=== PATIENT | female | born 1965 | race Caucasian/White ===

== ENCOUNTER 2017-03-28 09:16 | Emergency (ER) | payer MEDICAID ==
[~2017-03-28] VITALS: Ht 152.4 cm; Wt 59.0 kg
[2017-03-28] MEDS ORDERED: IBUPROFEN 600MG TABLET PO ONE (10:45)
[2017-03-28 12:08] VITALS: BP 118/70
== END 2017-03-28 12:09 | disposition home or self-care (01) ==
LOC: ER 09:16
DX: M25.512 Pain in left shoulder (principal); W01.0XXA Fall on same level from slipping, tripping and stumbling without subsequent striking against object, initial encounter; Y93.9 Activity, unspecified; Y92.9 Unspecified place or not applicable; Y99.9 Unspecified external cause status; E11.9 Type 2 diabetes mellitus without complications; Z98.890 Other specified postprocedural states
CPT/HCPCS: 73030; 81025; 99284

== ENCOUNTER 2019-02-07 08:12 | Emergency (ER) | payer MEDICAID ==
[~2019-02-07] VITALS: Ht 157.5 cm; Wt 54.0 kg
[2019-02-07] MEDS ORDERED: KETOROLAC 30MG/ML VIAL IM ONE (09:15)
[2019-02-07 10:38] VITALS: BP 138/78
== END 2019-02-07 10:10 | disposition home or self-care (01) ==
LOC: ER 08:12
DX: S82.492A Other fracture of shaft of left fibula, initial encounter for closed fracture (principal); E11.9 Type 2 diabetes mellitus without complications; W18.39XA Other fall on same level, initial encounter; Y93.89 Activity, other specified; Y92.89 Other specified places as the place of occurrence of the external cause; Y99.8 Other external cause status
CPT/HCPCS: 29505; 73562; 96372; 99283; J1885

== ENCOUNTER 2021-03-17 11:07 | Emergency (ER) | payer MEDICAID ==
[~2021-03-17] VITALS: Ht 152.4 cm; Wt 54.0 kg
[2021-03-17] MEDS ORDERED: SODIUM CHLORIDE 0.9% 1,000 ML IV ONE (12:30)
[2021-03-17] MEDS ORDERED: ONDANSETRON HCL 4MG/2ML INJ IV ONE (12:30)
[2021-03-17] MEDS ORDERED: FAMOTIDINE 20MG/2ML VIAL IV ONE (12:30)
[2021-03-17 12:57] LABS: BASOPHILS % 0.3 % (0.0-2.0); EOSINOPHILS % 0.2 % (0.0-5.0); HEMATOCRIT. 43.7 % (36.0-48.0); HEMOGLOBIN. 14.7 g/dL (12.0-16.0); LYMPHOCYTES % 7.6 % (20.0-50.0); MEAN CORPUSCULAR HEMOGLOBIN 31.8 pg (28.0-32.0); MEAN CORPUSCULAR VOLUME 94.4 fL (81.0-99.0); MEAN PLATELET VOLUME 10.4 fl (7.4-10.4); MONOCYTES % 11.9 % (2.0-8.0); PLATELET 148 x1000/uL (130-400); RED BLOOD CELL COUNT 4.63 mill/uL (4.2-5.4)
[2021-03-17 12:58] LABS: CHLORIDE 102 mEq/L (98-107)
[2021-03-17 15:58] LABS: CLARITY URINE CLOUDY (CLEAR); COLOR URINE YELLOW (YELLOW); KETONES URINE 4+ (NEGATIVE); LEUKOCYTE ESTERASE URINE 1+ (NEGATIVE); NITRITE URINE NEGATIVE (NEGATIVE); OCCULT BLOOD URINE 1+ (NEGATIVE); PROTEIN URINE TRACE (NEGATIVE); UROBILINOGEN URINE 0.2 E.U./dL (0.2-1.0)
[2021-03-17] MEDS ORDERED: IBUP-2029 MT (17:28)
[2021-03-17] MEDS ORDERED: ONDA4TAB11 PO (17:28)
[2021-03-17] MEDS ORDERED: LEVO500T89 MT (17:28)
[2021-03-17 17:33] VITALS: BP 121/68
== END 2021-03-17 18:09 | disposition home or self-care (01) ==
LOC: ER 11:07
DX: K52.9 Noninfective gastroenteritis and colitis, unspecified (principal); E11.65 Type 2 diabetes mellitus with hyperglycemia; E86.0 Dehydration; N39.0 Urinary tract infection, site not specified; R00.0 Tachycardia, unspecified; Z98.51 Tubal ligation status; Z98.890 Other specified postprocedural states
CPT/HCPCS: 36415; 80048; 81003; 85025; 87086; 93005; 96361; 96374; 96375; 99285; J2405; J3490; J7030; 99284

== ENCOUNTER 2021-03-18 23:12 | Inpatient (IN) | payer MEDICAID ==
[~2021-03-18] VITALS: Ht 149.9 cm; Wt 54.0 kg
[~2021-03-18 23:12] MED LIST: IBUP-2029 MT; LEVO500T89 MT; ONDA4TAB11 PO
[2021-03-18] MEDS ORDERED: ONDANSETRON HCL 4MG/2ML INJ IV STA (23:31)
[2021-03-18] MEDS ORDERED: FAMOTIDINE 20MG/2ML VIAL IV STA (23:31)
[2021-03-18] MEDS ORDERED: SODIUM CHLORIDE 0.9% 1,000 ML IV ONE (23:45)
[2021-03-19] VITALS (46 sets, daily range): BP systolic 108–139; BP diastolic 59–84
[2021-03-19 00:43] LABS: BASOPHILS % 0.2 % (0.0-2.0); EOSINOPHILS % 0.6 % (0.0-5.0); HEMATOCRIT. 43.8 % (36.0-48.0); HEMOGLOBIN. 14.6 g/dL (12.0-16.0); LYMPHOCYTES % 7.3 % (20.0-50.0); MEAN CORPUSCULAR HEMOGLOBIN 31.7 pg (28.0-32.0); MEAN CORPUSCULAR VOLUME 94.9 fL (81.0-99.0); MEAN PLATELET VOLUME 9.9 fl (7.4-10.4); MONOCYTES % 9.3 % (2.0-8.0); NEUTROPHILS % 82.6 % (40.0-76.0); PLATELET 174 x1000/uL (130-400); RED BLOOD CELL COUNT 4.62 mill/uL (4.2-5.4); RED CELL DISTRIBUTION WIDTH 12.8 % (11.6-14.6)
[2021-03-19 00:47] LABS: CLARITY URINE CLEAR (CLEAR); COLOR URINE YELLOW (YELLOW); KETONES URINE 4+ (NEGATIVE); LEUKOCYTE ESTERASE URINE NEGATIVE (NEGATIVE); NITRITE URINE NEGATIVE (NEGATIVE); OCCULT BLOOD URINE 2+ (NEGATIVE); PROTEIN URINE 1+ (NEGATIVE); SPECIFIC GRAVITY URINE 1.021 (1.005-1.030); UROBILINOGEN URINE 0.2 E.U./dL (0.2-1.0)
[2021-03-19 00:51] LABS: CHLORIDE 105 mEq/L (98-107)
[2021-03-19] MEDS ORDERED: SODIUM CHLORIDE 0.9% 1,000 ML IV ONE (01:30)
[2021-03-19 02:03] LABS: BG BASE EXCESS -23.8 mmol/L (-2.0-2.0); BG CARBOXYHEMOGLOBIN 0.3 % (0.5-1.5); BG DEOXYHEMOGLOBIN 1.6 % (0.0-5.0); BG HCO3 ACT 3.3 mmol/L (22.0-26.0); BG METHEMOGLOBIN 0.3 % (0.0-1.5); BG OXYGEN SATURATION 98.4 % (92.0-98.5); BG OXYHEMOGLOBIN 97.8 % (94.0-97.0); BG PCO2 10.8 mmHg (35.0-45.0); BG PH 7.107 (7.350-7.450); BG PO2 144.2 mmHg (75.0-100.0); BG TOTAL HEMOGLOBIN 14.4 g/dL (12.0-18.0)
[2021-03-19 03:58] LABS: PHOSPHORUS 4.8 mg/dL (2.5-4.9)
[2021-03-19 04:37] LABS: BETA HYDROXYBUTYRATE 11.3 mMol/L (0.0-0.3)
[2021-03-19] MEDS ORDERED: ACETAMINOPHEN 325MG TABLET PO PRN (05:15)
[2021-03-19] MEDS ORDERED: ONDANSETRON HCL 4MG/2ML INJ IV PRN (05:15)
[2021-03-19] MEDS ORDERED: MAGNESIUM/ALUMINUM HYDROXIDE/SIMETHICONE 30ML UDC PO PRN (05:15)
[2021-03-19] MEDS ORDERED: CLONIDINE 0.1MG TABLET PO PRN (05:15)
[2021-03-19] MEDS ORDERED: DEXT 5%/0.45% NACL 1000ML 1,000 ML IV SCH ×2 (05:15→11:15)
[2021-03-19] MEDS ORDERED: INSULIN REGULAR (DRIP) 100 UNITS in SODIUM CHLORIDE 0.9% 100 ML IV ONE (05:45)
[2021-03-19 06:34] LABS: CHLORIDE 113 mEq/L (98-107)
[2021-03-19] MEDS: SODIUM BICARBONATE 50 MEQ in SODIUM CHLORIDE 0.45% 1,000 ML IV SCH ×2 (06:49→19:32)
[2021-03-19] MEDS ORDERED: IOHEXOL-300 100 ML BOTTLE ONE (07:22)
[2021-03-19] MEDS ORDERED: DEXTROSE 50% WATER 50ML SYRINGE IV PRN ×3 (09:30→11:00)
[2021-03-19] MEDS: BLOOD SUGAR DIAGNOSTIC STRIP TEST SCH ×13 (09:43→23:00)
[2021-03-19] MEDS ORDERED: SIMV-46 PO (09:58)
[2021-03-19] MEDS ORDERED: ERTU15TA PO (09:58)
[2021-03-19] MEDS ORDERED: CHOL25CR2 MC (09:58)
[2021-03-19] MEDS ORDERED: METF-415 MT (09:58)
[2021-03-19] MEDS ORDERED: POLY17PO28 MT (09:58)
[2021-03-19] MEDS: METOCLOPRAMIDE HCL 10MG/2ML VIAL IV SCH ×3 (10:23→23:37)
[2021-03-19 11:00] LABS: CHLORIDE 114 mEq/L (98-107)
[2021-03-19] MEDS ORDERED: BLOOD SUGAR DIAGNOSTIC STRIP TEST SCH (11:00)
[2021-03-19] MEDS ORDERED: INSULIN REGULAR (DRIP) 100 UNITS in SODIUM CHLORIDE 0.9% 99 ML IV SCH (11:00)
[2021-03-19] MEDS ORDERED: INSULIN REGULAR (DRIP) 100 UNITS in SODIUM CHLORIDE 0.9% 100 ML IV SCH (11:00)
[2021-03-19 13:08] LABS: CHLORIDE 116 mEq/L (98-107)
[2021-03-19] MEDS: PANTOPRAZOLE SODIUM 40 MG/VIAL IV SCH (14:08)
[2021-03-19] MEDS ORDERED: *PATIENT'S OWN MEDICATION STORAGE XX SCH (17:00)
[2021-03-19 20:05] LABS: CHLORIDE 120 mEq/L (98-107)
[2021-03-19] MEDS ORDERED: DEXT 5%/0.45% NACL KCL 20MEQ/L 1,000 ML IV SCH (22:00)
[2021-03-19] MEDS ORDERED: KCL 20MEQ/100ML PREMIX 100 ML IV ONE (22:00)
[2021-03-20] VITALS (63 sets, daily range): BP systolic 103–154; BP diastolic 24–96
[2021-03-20 00:46] LABS: CHLORIDE 120 mEq/L (98-107)
[2021-03-20] MEDS: BLOOD SUGAR DIAGNOSTIC STRIP TEST SCH ×12 (01:00→20:49)
[2021-03-20] MEDS ORDERED: KCL 20MEQ/100ML PREMIX 100 ML IV NR ×3 (06:00→08:00)
[2021-03-20 07:04] LABS: CHLORIDE 121 mEq/L (98-107)
[2021-03-20] MEDS: METOCLOPRAMIDE HCL 10MG/2ML VIAL IV SCH ×3 (07:16→17:27)
[2021-03-20] MEDS ORDERED: DEXTROSE 50% WATER 50ML SYRINGE IV PRN (07:45)
[2021-03-20] MEDS: INSULIN LISPRO 100 UNITS/ML SUBCUT SCH ×4 (08:06→20:56)
[2021-03-20] MEDS: PANTOPRAZOLE SODIUM 40 MG/VIAL IV SCH (09:55)
[2021-03-20] MEDS: INSULIN GLARGINE UD 100 UNITS/ML SYR SUBCUT SCH (09:56)
[2021-03-20] MEDS: SODIUM CHLORIDE 0.45% 1,000 ML IV SCH (09:57)
[2021-03-20 12:45] LABS: CHLORIDE 114 mEq/L (98-107)
[2021-03-20 18:50] LABS: CHLORIDE 111 mEq/L (98-107)
[2021-03-20] MEDS ORDERED: POTASSIUM CHLORIDE 20MEQ/PACKET PO NR (20:00)
[2021-03-21] VITALS (18 sets, daily range): BP systolic 103–136; BP diastolic 55–86
[2021-03-21] MEDS: METOCLOPRAMIDE HCL 10MG/2ML VIAL IV SCH ×4 (00:02→17:30)
[2021-03-21] MEDS: SODIUM CHLORIDE 0.45% 1,000 ML IV SCH ×2 (00:02→12:33)
[2021-03-21 06:57] LABS: BASOPHILS % 0.3 % (0.0-2.0); CHLORIDE 111 mEq/L (98-107); EOSINOPHILS % 1.6 % (0.0-5.0); HEMATOCRIT. 37.3 % (36.0-48.0); HEMOGLOBIN. 12.9 g/dL (12.0-16.0); MEAN CORPUSCULAR HEMOGLOBIN 31.2 pg (28.0-32.0); MEAN CORPUSCULAR VOLUME 90.1 fL (81.0-99.0); MEAN PLATELET VOLUME 9.1 fl (7.4-10.4); MONOCYTES % 12.6 % (2.0-8.0); NEUTROPHILS % 72.5 % (40.0-76.0); PLATELET 191 x1000/uL (130-400); RED BLOOD CELL COUNT 4.15 mill/uL (4.2-5.4); RED CELL DISTRIBUTION WIDTH 12.9 % (11.6-14.6)
[2021-03-21] MEDS ORDERED: POTASSIUM CHLORIDE 20MEQ/PACKET PO NR (08:00)
[2021-03-21] MEDS: PANTOPRAZOLE SODIUM 40 MG/VIAL IV SCH (08:03)
[2021-03-21] MEDS: BLOOD SUGAR DIAGNOSTIC STRIP TEST SCH ×4 (08:04→19:33)
[2021-03-21] MEDS: INSULIN LISPRO 100 UNITS/ML SUBCUT SCH ×4 (08:05→21:14)
[2021-03-21] MEDS: INSULIN GLARGINE UD 100 UNITS/ML SYR SUBCUT SCH (09:55)
[2021-03-21] MEDS ORDERED: ONDANSETRON HCL 4MG/2ML INJ IV PRN (10:30)
[2021-03-21] MEDS ORDERED: SODIUM CHLORIDE 0.45% 1,000 ML IV ONE (12:30)
[2021-03-22] VITALS: BP 105/62
[2021-03-22] MEDS: METOCLOPRAMIDE HCL 10MG/2ML VIAL IV SCH ×3 (01:06→12:28)
[2021-03-22 04:00] VITALS: BP 113/66
[2021-03-22] MEDS: SODIUM CHLORIDE 0.45% 1,000 ML IV SCH (04:02)
[2021-03-22] MEDS: BLOOD SUGAR DIAGNOSTIC STRIP TEST SCH ×2 (05:16→12:29)
[2021-03-22] MEDS: INSULIN LISPRO 100 UNITS/ML SUBCUT SCH ×2 (05:50→12:42)
[2021-03-22 08:00] VITALS: BP 117/63
[2021-03-22] MEDS ORDERED: LACTULOSE 20G/30ML UDC PO NR (10:00)
[2021-03-22] MEDS ORDERED: DOCUSATE SODIUM 100MG CAPSULE PO SCH (10:00)
[2021-03-22 12:00] VITALS: BP 120/74
[2021-03-22] MEDS: INSULIN GLARGINE UD 100 UNITS/ML SYR SUBCUT SCH (12:24)
[2021-03-22] MEDS: PANTOPRAZOLE SODIUM 40 MG/VIAL IV SCH (12:28)
[2021-03-22 14:40] VITALS: BP 120/74
== END 2021-03-22 15:30 | disposition home or self-care (01) | DRG 420 ==
LOC: ER 23:46 → CVICU 03-19 02:21 → EDBEDREQ 03-19 05:47 → EDBEDREQSVC 03-19 05:47 → ENRESERV 03-19 07:49 → ER 03-19 08:38 → 8WST 03-21 14:14
PROVIDERS: ADMIT Hospitalist; ATTEND Hospitalist
DX: E11.10 Type 2 diabetes mellitus with ketoacidosis without coma (principal); R00.0 Tachycardia, unspecified; Z79.1 Long term (current) use of non-steroidal anti-inflammatories (NSAID); Z79.2 Long term (current) use of antibiotics; Z98.51 Tubal ligation status
CPT/HCPCS: 36415; 36600; 71045; 74177; 80048; 80053; 81003; 82010; 82375; 82805; 82962; 83036; 83605; 83735; 84100; 84145; 85025; 93005; 93970; 99291; C9113; J1815; J2405; J2765; J3480; J3490; J7030; J7050; Q9967

== ENCOUNTER 2025-03-15 20:13 | Emergency (ER) | payer MEDICAID, OTHER ==
[~2025-03-15] VITALS: Ht 149.9 cm; Wt 43.0 kg
[~2025-03-15 20:13] MED LIST changes: +CHOL25CR2 MC; +ERTU15TA PO; +LEVO-65 MT; -LEVO500T89 MT; +METF-415 MT; +ONDA-239 PO; -ONDA4TAB11 PO; +POLY17PO43 MT; +SIMV-46 PO
[2025-03-15 20:56] VITALS: TEMP 36.8; O2SAT 98
[2025-03-15 21:19] LABS: CLARITY URINE CLEAR (CLEAR); COLOR URINE YELLOW (YELLOW); GLUCOSE URINE 3+ (NEGATIVE); KETONES URINE NEGATIVE (NEGATIVE); LEUKOCYTE ESTERASE URINE TRACE (NEGATIVE); NITRITE URINE POSITIVE (NEGATIVE); OCCULT BLOOD URINE NEGATIVE (NEGATIVE); PH URINE 5.5 (4.5-8.0); PROTEIN URINE NEGATIVE (NEGATIVE); SPECIFIC GRAVITY URINE 1.033 (1.005-1.030); UROBILINOGEN URINE 0.2 E.U./dL (0.2-1.0)
[2025-03-15 21:34] LABS: BASOPHILS % 0.5 % (0.0-2.0); EOSINOPHILS % 3.2 % (0.0-5.0); HEMATOCRIT. 38.4 % (36.0-48.0); HEMOGLOBIN. 12.6 g/dL (12.0-16.0); LYMPHOCYTES % 52.4 % (20.0-50.0); MEAN PLATELET VOLUME 9.5 fl (7.4-10.4); MONOCYTES % 5.8 % (2.0-8.0); NEUTROPHILS % 38.1 % (40.0-76.0); PLATELET 200 x1000/uL (130-400); RED BLOOD CELL COUNT 4.18 mill/uL (4.2-5.4); RED CELL DISTRIBUTION WIDTH 13.2 % (11.6-14.6)
[2025-03-15 21:48] LABS: CREATININE 0.7 mg/dL (0.6-1.0); UREA NITROGEN BLOOD 21 mg/dL (9-23)
[2025-03-15 21:50] LABS: ASPARTATE AMINOTRANSFERASE 12 IU/L (<34); BILIRUBIN DIRECT < 0.1 mg/dL (<=3.0); BILIRUBIN TOTAL 0.3 mg/dL (0.1-1.0); PROTEIN TOTAL 7.7 g/dL (6.0-8.3)
[2025-03-15] MEDS: SODIUM CHLORIDE 0.9% 1,000 ML IV ONE (22:15)
[2025-03-15 22:45] LABS: BACTERIA URINE 3+; RBC URINE 0-2 /hpf (0-2); SQUAMOUS EPITHELIAL CELL URINE FEW /lpf (RARE/1+)
[2025-03-15] MEDS: GENTAMICIN 80MG PREMIX 100 ML IV NR (23:37)
[2025-03-16 01:21] VITALS: BP 138/81; PULSE 100; RESP 16; O2SAT 96
== END 2025-03-16 01:58 | disposition short-term general hospital (02) ==
LOC: ER 20:13 → CMPBEDREQ 03-16 16:20
DX: N39.0 Urinary tract infection, site not specified (principal); E11.65 Type 2 diabetes mellitus with hyperglycemia; M19.90 Unspecified osteoarthritis, unspecified site; Z79.84 Long term (current) use of oral hypoglycemic drugs; Z98.51 Tubal ligation status
CPT/HCPCS: 99285; 96365; 71045; 96361; 80076; 80048; 81003; 85025; 87040; 87086; 87186; 87077; 36415; J1580; J7030